=== PATIENT | male | born 1965 | race Caucasian/White ===

== ENCOUNTER 2022-10-31 21:49 | Inpatient (IN) | payer MEDICAID ==
[~2022-10-31] VITALS: Ht 185.9 cm; Wt 87.8 kg
[2022-10-31 22:22] LABS: BASOPHILS # (AUTO) 0.1 10^3/uL (0.0-0.1); BASOPHILS % (AUTO) 1 % (0-10); EOSINOPHILS # (AUTO) 0.1 10^3/uL (0.0-0.3); EOSINOPHILS % (AUTO) 0 % (0-10); HEMATOCRIT 53 % (40-54); HEMOGLOBIN 17.7 g/dL (13.3-17.7); LYMPHOCYTES # (AUTO) 2.3 10^3/uL (1.0-4.0); LYMPHOCYTES % (AUTO) 16 % (12-44); MEAN CORPUSCULAR HEMOGLOBIN 28 pg (25-34); MEAN CORPUSCULAR HGB CONC 34 g/dL (32-36); MEAN CORPUSCULAR VOLUME 83 fL (80-99); MEAN PLATELET VOLUME 10.6 fL (9.0-12.2); MONOCYTES % (AUTO) 7 % (0-12); NEUTROPHILS % (AUTO) 76 % (42-75); PLATELET COUNT 259 10^3/uL (130-400); WHITE BLOOD COUNT 14.4 10^3/uL (4.3-11.0)
[2022-10-31] MEDS ORDERED: NS IV 1000 ML 1,000 ML IV SCH (22:30)
[2022-10-31] MEDS ORDERED: ONDANSETRON 4 MG/2 ML (SDV) Z0FRAN IVP ONE (22:30)
[2022-10-31 22:32] LABS: ALBUMIN 4.7 GM/DL (3.2-4.5); CHLORIDE 95 MMOL/L (98-107); POTASSIUM 4.6 MMOL/L (3.6-5.0); SODIUM 136 MMOL/L (135-145)
[2022-10-31 22:33] LABS: CALCIUM 10.8 MG/DL (8.5-10.1)
[2022-10-31 22:34] LABS: TOTAL PROTEIN 8.2 GM/DL (6.4-8.2)
[2022-10-31 22:35] LABS: CARBON DIOXIDE 15 MMOL/L (21-32)
[2022-10-31 22:36] LABS: BILIRUBIN,TOTAL 0.5 MG/DL (0.1-1.0)
[2022-10-31 22:37] LABS: EOSINOPHILS % (MANUAL) 1 %; LYMPHOCYTES % (MANUAL) 17 %; MONOCYTES % (MANUAL) 10 %; NEUTROPHILS % (MANUAL) 72 %; SPHEROCYTES SLIGHT
[2022-10-31 22:38] LABS: ALKALINE PHOSPHATASE 109 U/L (40-136); BURR CELLS SLIGHT; CREATININE SERUM 1.89 MG/DL (0.60-1.30); GFR ESTIMATED 41; GLUCOSE 412 MG/DL (70-105)
[2022-10-31 22:39] LABS: BUN/CREATININE RATIO 12
[2022-10-31 22:41] LABS: ALANINE AMINOTRANSFERASE 16 U/L (0-55)
--- NOTE | 2022-10-31 22:48 | ED General ---
General Chief Complaint: General Problems/Pain Stated Complaint: VOMITING, DIABETIC, NO APPETITE Nursing Triage Note: PT ARRIVAL TO ER VIA PRIVATE VE[facility]ICLE [facility] [place] [facility] WITH COMPLAINT OF N/V/D X3 DAYS, HYPERGLYECMIA X3 DAYS. PATIENT STATES THAT HE THINKS HE MIGHT OF HAD HIS FLU VACCINE, BUT IS UNSURE WHEN. Source of Information: Patient Exam Limitations: No Limitations History of Present Illness Date Seen by Provider: Oct 31, 2022 Time Seen by Provider: 22:28 Initial Comments This is a 57-year-old male with history of Type 1 diabetes, HTN, CAD, GERD, quadruple bypass, COPD, and Asthma who presented the ER via POV with concerns of nausea, vomiting, diarrhea x3 days. He does have a history of type 1 diabetes and has been hyperglycemic over the past 3 days. States that he has not been taking his long-acting insulin but will still intermittently take his short acting insulin. He takes Tresiba 160 mg in the morning and he uses a sliding scale NovoLog through the day. Reports chills and body aches, unknown fevers. Has been able to keep down food and fluids. Allergies and Home Medications Allergies Coded Allergies: No Known Drug Allergies (Unverified , 10/31/22) Patient Home Medication List Home Medication List Reviewed: Yes Review of Systems Review of Systems Constitutional: see HPI Past Msifzdd-Mmcvdp-Eludtw Hx Patient Social History Tobacco Use?: Yes Tobacco type used: Cigarettes Smoking Status: Current Everyday Smoker Use of E-Cig and/or Vaping dev: No Substance use?: No Alcohol Use?: No Pt feels they are or have been: No Immunizations Up To Date Influenza Vaccine Up-to-Date: No; Not Current Physical Exam Vital Signs Vital Signs - First Documented 10/31/22 21:56 Temp 35.9 Pulse 99 Resp 18 B/P (MAP) 190/116 (140) Pulse Ox 100 O2 Delivery Room Air Capillary Refill : Less Than 3 Seconds Height, Weight, BMI Height: '" Weight: lbs. oz. kg; BMI Method: General Appearance: No Apparent Distress, WD/WN Eyes: Bilateral Eye Normal Inspection, Bilateral Eye PERRL, Bilateral Eye EOMI HEENT: TMs Normal, Normal ENT Inspection, Pharynx Normal Neck: Full Range of Motion, Normal Inspection Respiratory: Lungs Clear, Normal Breath Sounds, No Accessory Muscle Use, No Respiratory Distress Cardiovascular: Regular Rate, Rhythm, No Murmur, Normal Peripheral Pulses Gastrointestinal: Normal Bowel Sounds, Non Tender, Soft Extremity: Normal Capillary Refill, Normal Inspection Neurologic/Psychiatric: Alert, Oriented x3, No Motor/Sensory Deficits, Normal Mood/Affect Skin: Normal Color, Warm/Dry Progress/Results/Core Measures Suspected Sepsis SIRS Temperature: Pulse: 99 Respiratory Rate: 18 Laboratory Tests 10/31/22 22:05: White Blood Count 14.4H Blood Pressure 190 /116 Mean: 140 Laboratory Tests 10/31/22 22:05: Creatinine 1.89H, Platelet Count 259, Total Bilirubin 0.5 Results/Orders Lab Results Laboratory Tests Test 10/31/22 21:59 10/31/22 22:02 10/31/22 22:05 10/31/22 23:08 Range/Units Influenza Type A (RT-PCR) Not Detected Not Detecte Influenza Type B (RT-PCR) Not Detected Not Detecte SARS-CoV-2 RNA (RT-PCR) Not Detected Not Detecte Glucometer 425 *H 70-110 MG/DL White Blood Count 14.4 H 4.3-11.0 10^3/uL Red Blood Count 6.35 H 4.30-5.52 10^6/uL Hemoglobin 17.7 13.3-17.7 g/dL Hematocrit 53 40-54 % Mean Corpuscular Volume 83 80-99 fL Mean Corpuscular Hemoglobin 28 25-34 pg Mean Corpuscular Hemoglobin Concent 34 32-36 g/dL Red Cell Distribution Width 13.9 10.0-14.5 % Platelet Count 259 130-400 10^3/uL Mean Platelet Volume 10.6 9.0-12.2 fL Immature Granulocyte % (Auto) 1 % Neutrophils (%) (Auto) 76 H 42-75 % Lymphocytes (%) (Auto) 16 12-44 % Monocytes (%) (Auto) 7 0-12 % Eosinophils (%) (Auto) 0 0-10 % Basophils (%) (Auto) 1 0-10 % Neutrophils # (Auto) 11.0 H 1.8-7.8 10^3/uL Lymphocytes # (Auto) 2.3 1.0-4.0 10^3/uL Monocytes # (Auto) 1.0 0.0-1.0 10^3/uL Eosinophils # (Auto) 0.1 0.0-0.3 10^3/uL Basophils # (Auto) 0.1 0.0-0.1 10^3/uL Immature Granulocyte # (Auto) 0.1 0.0-0.1 10^3/uL Neutrophils % (Manual) 72 % Lymphocytes % (Manual) 17 % Monocytes % (Manual) 10 % Eosinophils % (Manual) 1 % Spherocytes SLIGHT Evangelista Cells SLIGHT Sodium Level 136 135-145 MMOL/L Potassium Level 4.6 3.6-5.0 MMOL/L Chloride Level 95 L 98-107 MMOL/L Carbon Dioxide Level 15 L 21-32 MMOL/L Anion Gap 26 H 5-14 MMOL/L Blood Urea Nitrogen 22 H 7-18 MG/DL Creatinine 1.89 H 0.60-1.30 MG/DL Estimat Glomerular Filtration Rate 41 BUN/Creatinine Ratio 12 Glucose Level 412 *H 70-105 MG/DL Calcium Level 10.8 H 8.5-10.1 MG/DL Corrected Calcium 8.5-10.1 MG/DL Total Bilirubin 0.5 0.1-1.0 MG/DL Aspartate Amino Transf (AST/SGOT) 13 5-34 U/L Alanine Aminotransferase (ALT/SGPT) 16 0-55 U/L Alkaline Phosphatase 109 40-136 U/L Total Protein 8.2 6.4-8.2 GM/DL Albumin 4.7 H 3.2-4.5 GM/DL Beta-Hydroxybutyrate (Chem panel) 9.50 H 0.00-0.27 MMOL/L Venous Blood pH 7.25 L 7.31-7.41 Venous Blood Partial Pressure CO2 42 40-52 MMHG Venous Blood HCO3 18 L 22-28 MMOL/L My Orders Orders - BRIANA CLARK BARREL REAMER Cbc With Automated Diff (10/31/22 22:18) Comprehensive Metabolic Panel (10/31/22 22:18) Ua Culture If Indicated (10/31/22 22:18) Ed Iv/Invasive Line Start (10/31/22 22:19) Ns Iv 1000 Ml (Sodium Chloride 0.9%) (10/31/22 22:30) Ondansetron Injection (Zofran Injectio (10/31/22 22:30) Manual Differential (10/31/22 22:05) Beta Hydroxybutyrate (10/31/22 22:41) Covid 19 Inhouse Test (10/31/22 22:48) Influenza A And B By Pcr (10/31/22 22:48) Venous Blood Gas (10/31/22 23:10) Insulin (Regular) Human (Novolin R (Per (10/31/22 23:30) Insulin Regular Drip (Myxredlin 100 Unit (10/31/22 23:30) Promethazine Injection (Phenergan Injec (10/31/22 23:30) Metoprolol Tartrate Injection (Lopressor (10/31/22 23:30) Medications Given in ED Current Medications Medications Dose Ordered Sig/Allison Route Start Time Stop Time Status Last Admin Dose Admin Insulin Human Regular 10 unit ONCE ONCE IV 10/31/22 23:30 10/31/22 23:31 DC 10/31/22 23:38 10 UNIT Metoprolol Tartrate 5 mg ONCE ONCE IV 10/31/22 23:30 10/31/22 23:31 DC 10/31/22 23:38 5 MG Ondansetron HCl 4 mg ONCE ONCE IVP 10/31/22 22:30 10/31/22 22:31 DC 10/31/22 22:30 4 MG Promethazine HCl 25 mg ONCE ONCE IVP 10/31/22 23:30 10/31/22 23:31 DC 10/31/22 23:38 25 MG Vital Signs/I&O 10/31/22 21:56 Temp 35.9 Pulse 99 Resp 18 B/P (MAP) 190/116 (140) Pulse Ox 100 O2 Delivery Room Air Capillary Refill : Less Than 3 Seconds 2 Blood Pressure Mean: 140 Point of Care Testing Finger Stick Blood Glucose: 425 Progress Note : Progress Note Patient examined in no acute distress. He does have a blood glucose of 425. Given normal saline 1 L bolus and Zofran 4 mg IV push. Obtain basic labs, UA, beta hydroxybutyrate. Will obtain Flu and Covid swabs. Departure Communication (Admissions) Time/Spoke to Admitting Phy: 23:16 Dr. Brantley Time/Spoke to Consulting Phy: 23:[address] Muniz Impression Primary Impression: DKA (diabetic ketoacidosis) Additional Impression: Nausea & vomiting Disposition: ADMITTED INPATIENT Condition: Stable Admissions Decision to Admit Reason: Admit from ER (General) Decision to Admit/Date: Oct 31, 2022 Time/Decision to Admit Time: 23:03 Departure-Patient Inst. Referrals: NO,LOCAL PHYSICIAN (PCP) Primary Care Physician BRIANA CLARK APRN Oct 31, 2022 22:48
[2022-10-31] MEDS ORDERED: meTOprolol 5 MG/5 ML (LOPRESSOR) VIAL IV ONE (23:30)
[2022-10-31] MEDS ORDERED: inSUlin (REGULAR) HUMAN 1 UNIT/0.01 ML (CHARGE PER UNIT) IV ONE (23:30)
[2022-10-31] MEDS ORDERED: PROMETHAZINE INJ 25 MG/ML (PHENERGAN) AMP IVP ONE (23:30)
[2022-11-01] MEDS ORDERED: NS IV 1000 ML 1,000 ML IV SCH (00:30)
[2022-11-01] MEDS ORDERED: NS (IVPB) 250 ML IV ONE (00:45)
[2022-11-01] MEDS ORDERED: METOCLOPRAMIDE INJ 10 MG/2 ML (REGLAN) IV PRN (00:45)
[2022-11-01] MEDS ORDERED: ACETAMINOPHEN 650 MG SUPP (TYLENOL) PR PRN (00:45)
[2022-11-01] MEDS ORDERED: ACETAMINOPHEN 325 MG TABLET PO PRN (00:45)
[2022-11-01] MEDS ORDERED: PROMETHAZINE INJ 25 MG/ML (PHENERGAN) AMP IVP PRN (00:45)
[2022-11-01] MEDS ORDERED: ONDANSETRON 4 MG/2 ML (SDV) Z0FRAN IV PRN (00:45)
[2022-11-01] MEDS ORDERED: RT-ALBUTEROL HFA 8.5 GM INHALER IH PRN (00:45)
[2022-11-01] MEDS ORDERED: hydrALAZINE (APESOLINE) 20 MG/ML VIAL IV PRN ×2 (01:00)
[2022-11-01] MEDS ORDERED: LABETALOL HCL 20 MG/4 ML VIAL IV PRN ×2 (01:00)
[2022-11-01 01:02] VITALS: BP 196/110
[2022-11-01 01:09] LABS: BASOPHILS # (AUTO) 0.1 10^3/uL (0.0-0.1); BASOPHILS % (AUTO) 1 % (0-10); EOSINOPHILS # (AUTO) 0.3 10^3/uL (0.0-0.3); EOSINOPHILS % (AUTO) 2 % (0-10); HEMATOCRIT 52 % (40-54); HEMOGLOBIN 17.3 g/dL (13.3-17.7); LYMPHOCYTES % (AUTO) 13 % (12-44); MEAN CORPUSCULAR HEMOGLOBIN 28 pg (25-34); MEAN CORPUSCULAR HGB CONC 33 g/dL (32-36); MEAN CORPUSCULAR VOLUME 83 fL (80-99); MEAN PLATELET VOLUME 10.3 fL (9.0-12.2); MONOCYTES % (AUTO) 6 % (0-12); NEUTROPHILS # (AUTO) 12.4 10^3/uL (1.8-7.8); NEUTROPHILS % (AUTO) 78 % (42-75); PLATELET COUNT 222 10^3/uL (130-400); WHITE BLOOD COUNT 15.8 10^3/uL (4.3-11.0)
--- NOTE | 2022-11-01 01:12 | Tele-ICU Progress Note ---
Progress Note 57M with DM1, CAD s/p 4vCABG and 8-9 stents, bladder CA, prostate CA, recent prolonged admission x3 months due to complications of trigeminal neuralgia surgery, has had nausea, vomitting, diarrhea x3 days. Has not been taking his long acting insulin. Did take Novolog 20-25 units earlier in the day. In ED, found to be in DKA with anion gap 26, b-hydroxy 9.5. - DKA: Initial gap 26, repeat pending. Insulin gtt ongoing, DKA protocol in place. Unclear whether stopped insulin prior to onset of symptoms. Possible viral GE trigger. If GE symptoms persist beyond treatment for DKA, will initiate further work up. - HTN: BP has been around 200/100. PRN labetalol and hydralazine ordered. Restart home Rx when able to tolerate PO. - tobacco: patch, PRN gum - QUOC vs CKD: creatinine 1.8, baseline unknown. With DM1, high risk for both. Will see if there is improvement with volume resuscitation. Send UA for e/o proteinuria. Diagnosis: A total of 11 minutes of critical care time was devoted to this patient, including reviewing this patient's available data, including medical history, events of note and test results. I have overseen the activities of other members of the care team under my direct supervision during events of the note . This was required to treat and/or prevent further deterioration of critical care conditions ( as above ). Service provided to a patient admitted to ICU bed via interactive E-CARE system with real-time audio and video telecommunications from [facility]- ICU hub located in [place], [place] Focused Exam Height, Weight, BMI Height: '" Weight: lbs. oz. kg; 25.23 BMI Method: WRAD GROSS MD Nov 01, 2022 01:12
[2022-11-01] MEDS ORDERED: NICOTINE 2 MG LOZENGE (COMMIT) MM PRN (01:15)
[2022-11-01 01:20] LABS: POTASSIUM 3.9 MMOL/L (3.6-5.0)
[2022-11-01 01:21] LABS: CALCIUM 9.8 MG/DL (8.5-10.1)
[2022-11-01 01:25] LABS: CREATININE SERUM 1.5 MG/DL (0.60-1.30)
[2022-11-01] MEDS: 1/2 NS IV SOLUTION 1,000 ML IV SCH ×6 (02:07→19:08)
[2022-11-01] MEDS: POTASSIUM CL 10MEQ/50ML IVPB 50 ML IV SCH ×8 (02:09→18:48)
[2022-11-01 03:26] LABS: BASOPHILS # (AUTO) 0.1 10^3/uL (0.0-0.1); BASOPHILS % (AUTO) 0 % (0-10); EOSINOPHILS # (AUTO) 0.2 10^3/uL (0.0-0.3); EOSINOPHILS % (AUTO) 1 % (0-10); HEMATOCRIT 48 % (40-54); HEMOGLOBIN 15.9 g/dL (13.3-17.7); LYMPHOCYTES % (AUTO) 14 % (12-44); MEAN CORPUSCULAR HEMOGLOBIN 28 pg (25-34); MEAN CORPUSCULAR HGB CONC 33 g/dL (32-36); MEAN CORPUSCULAR VOLUME 83 fL (80-99); MEAN PLATELET VOLUME 10.4 fL (9.0-12.2); MONOCYTES # (AUTO) 0.7 10^3/uL (0.0-1.0); MONOCYTES % (AUTO) 5 % (0-12); NEUTROPHILS # (AUTO) 10.8 10^3/uL (1.8-7.8); NEUTROPHILS % (AUTO) 79 % (42-75); PLATELET COUNT 207 10^3/uL (130-400); WHITE BLOOD COUNT 13.7 10^3/uL (4.3-11.0)
[2022-11-01 03:52] LABS: CLARITY,URINE CLEAR; COLOR,URINE YELLOW; GLUCOSE, URINE (UA) 2+ (NEGATIVE); KETONES,URINE 3+ (NEGATIVE); LEUKOCYTE ESTERASE ,URINE NEGATIVE (NEGATIVE); NITRITE,URINE NEGATIVE (NEGATIVE); PH,URINE 5.5 (5-9); PROTEIN,URINE NEGATIVE (NEGATIVE)
[2022-11-01 04:44] LABS: CREATININE SERUM 1.4 MG/DL (0.60-1.30); POTASSIUM 4.2 MMOL/L (3.6-5.0)
[2022-11-01 04:45] LABS: BILIRUBIN,TOTAL 0.3 MG/DL (0.1-1.0); CALCIUM 9.1 MG/DL (8.5-10.1); MAGNESIUM 1.9 MG/DL (1.6-2.4); PHOSPHORUS 2.8 MG/DL (2.3-4.7)
[2022-11-01] MEDS: D5 1/2 NS 1000 ML IV SOLUTION 1,000 ML IV SCH ×4 (04:54→16:29)
[2022-11-01 04:57] LABS: BACTERIA,URINE TRACE /HPF; BILIRUBIN,URINE NEGATIVE (NEGATIVE); HYALINE CASTS, URINE 0-2 /LPF; SQUAMOUS EPITHELIAL CELL,UR 0-2 /HPF
[2022-11-01 05:42] LABS: POTASSIUM 4.3 MMOL/L (3.6-5.0)
[2022-11-01 05:43] LABS: CALCIUM 9.2 MG/DL (8.5-10.1)
[2022-11-01 05:44] LABS: TOTAL PROTEIN 6.9 GM/DL (6.4-8.2)
[2022-11-01 05:46] LABS: BILIRUBIN,TOTAL 0.3 MG/DL (0.1-1.0)
[2022-11-01 05:47] LABS: PHOSPHORUS 2.4 MG/DL (2.3-4.7)
[2022-11-01 05:48] LABS: CREATININE SERUM 1.29 MG/DL (0.60-1.30)
[2022-11-01 05:51] LABS: MAGNESIUM 1.6 MG/DL (1.6-2.4)
[2022-11-01] MEDS ORDERED: NS IV 500 ML 500 ML IV PRN (06:30)
[2022-11-01] MEDS: MAGNESIUM 1 GM/100 ML IVPB 100 ML IV SCH ×2 (06:37→06:38)
[2022-11-01] MEDS ORDERED: UMECLIDINIUM BROMIDE (INCRUSE ELLIPTA) 7'S IH SCH (08:00)
[2022-11-01] MEDS: NICOTINE 14 MG (NICODERM) PATCH TD SCH (08:12)
[2022-11-01] MEDS: PANTOPRAZOLE 40 MG (PROTONIX) VIAL IV SCH (08:12)
[2022-11-01] MEDS: ENOXAPARIN 40 MG/0.4 ML (LOVENOX) SYR SC SCH (08:12)
[2022-11-01 09:42] LABS: CALCIUM 8.7 MG/DL (8.5-10.1); CREATININE SERUM 1.18 MG/DL (0.60-1.30); POTASSIUM 3.8 MMOL/L (3.6-5.0)
--- NOTE | 2022-11-01 10:57 | History & Physical ---
BERNARDO RECINOS 11/01/22 1057: History of Present Illness History of Present Illness Reason for visit/HPI Yovany Romero is a 57-year-old male with history of Type 1 diabetes, HTN, CAD, GERD, quadruple bypass, COPD, and Asthma who presented the ER via POV with concerns of nausea, vomiting, diarrhea x3 days. He does have a history of type 1 diabetes and has been hyperglycemic over the past 3 days. States that he has not been taking his long-acting insulin but will still intermittently take his short acting insulin. He takes Tresiba 160 mg in the morning and he uses a sliding scale NovoLog through the day. Reports chills and body aches, unknown fevers. Has been able to keep down food and fluids. 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 He denied vomiting/diarrhea last night and mentioned that he "couldn't remember if he had" questioning any constant lucidity of thinking. Still nauseas and doesnt appear well enough to be transfered or released at this time. Date of Admission Oct 31, 2022 at 23:37 Time Seen by a Provider: 08:10 I consulted on this patient on 11/01/22 10:52 Attending Physician No,Local Physician Admitting Physician Admitting Physician: Sandra Salazar DO Attending Physician: Sandra Salazar DO Consult Allergies and Home Medications Allergies Coded Allergies: No Known Drug Allergies (Unverified , 10/31/22) Patient Home Medication List Home Medication List Reviewed: Yes Albuterol Sulfate (Ventolin Hfa) 90 Mcg Hfa.aer.ad, 2 PUFF INH Q6H PRN for SHORTNESS OF BREATH, (Reported) Entered as Reported by: PHANI GALLAGHER on 11/01/221453 Last Action: Continued Amitriptyline HCl (Amitriptyline HCl) 50 Mg Tablet, 50 MG PO HS, (Reported) Entered as Reported by: PHANI GALLAGHER on 11/01/221453 Last Action: Converted Aspirin (Aspirin EC) 81 Mg Tablet.dr, 81 MG PO MO,WE,FR, (Reported) Entered as Reported by: PHANI GALLAGHER on 11/01/221453 Last Action: Continued Carvedilol (Carvedilol) 25 Mg Tablet, 12.5 MG PO BID, (Reported) Entered as Reported by: PHANI GALLAGHER on 11/01/221453 Last Action: Converted Clopidogrel Bisulfate (Clopidogrel) 75 Mg Tablet, 75 MG PO DAILY, (Reported) Entered as Reported by: PHANI GALLAGHER on 11/01/221453 Last Action: Continued Dicyclomine HCl (Dicyclomine HCl) 20 Mg Tablet, 20 MG PO DAILY, (Reported) Entered as Reported by: PHANI GALLAGHER on 11/01/221453 Last Action: Converted Diltiazem HCl (Dilt-Xr) 240 Mg Cap.er.deg, 240 MG PO DAILY, (Reported) Entered as Reported by: PHANI GALLAGHER on 11/01/221453 Last Action: Converted Duloxetine HCl (Duloxetine HCl) 30 Mg Capsule.dr, 30 MG PO BID, (Reported) Entered as Reported by: PHANI GALLAGHER on 11/01/221453 Last Action: Continued Evolocumab (Repatha Syringe) 140 Mg/Ml Syringe, 1 EA IJ EVERY 2 WEEKS, (Report ed) Entered as Reported by: PHANI GALLAGHER on 11/01/221453 Last Action: Converted Fenofibrate Nanocrystallized (Fenofibrate) 145 Mg Tablet, 145 MG PO DAILY, (Reported) Entered as Reported by: PHANI GALLAGHER on 11/01/221453 Last Action: Converted Insulin Aspart (Novolog Flexpen) 100 Unit/Ml (3 Ml) Solution, UNITS SC AC, (Reported) Entered as Reported by: PHANI GALLAGHER on 11/01/221453 Last Action: Held Insulin Degludec (Tresiba Flextouch U-200) 200 Unit/Ml (3 Ml) Insuln.pen, 160 UNITS SC DAILY, (Reported) Entered as Reported by: PHANI GALLAGHER on 11/01/221453 Last Action: Held Isosorbide Mononitrate (Isosorbide Mononitrate ER) 30 Mg Tab.er.24h, 30 MG PO DAILY, (Reported) Entered as Reported by: PHANI GALLAGHER on 11/01/221453 Last Action: Continued Mometasone/Formoterol (Dulera 200 Mcg/5 Mcg Inhaler) 200 Mcg-5 Mcg/Actuation Hfa.aer.ad, 2 PUFF INH BID, (Reported) Entered as Reported by: PHANI GALLAGHER on 11/01/221453 Last Action: Converted [place]-3/Dha/Epa/Fish Oil (Fish Oil 1,000 mg Softgel) 250 Mg-500 Mg-1,000 Mg Capsule, 2 EACH PO BID, (Reported) Entered as Reported by: PHANI GALLAGHER on 11/01/221453 Last Action: Converted Oxcarbazepine (Oxcarbazepine) 600 Mg Tablet, 900 MG PO BID, (Reported) Entered as Reported by: PHANI GALLAGHER on 11/01/221453 Last Action: Converted Oxycodone HCl (Oxycodone HCl) 10 Mg Tablet, 10 MG PO Q4H PRN for PAIN-SEVERE (8-10), (Reported) Entered as Reported by: PHANI GALLAGHER on 11/01/221453 Last Action: Converted Pregabalin (Pregabalin) 200 Mg Capsule, 200 MG PO BID, (Reported) Entered as Reported by: PHANI GALLAGHER on 11/01/221453 Last Action: Converted Tiotropium [place] (Spiriva) 18 Mcg Aerp, 1 PUFF INH DAILY, (Reported) Entered as Reported by: PHANI GALLAGHER on 11/01/221453 Last Action: Continued Past Otjyscy-Dimipj-Pfdamf Hx Patient Social History Tobacco Use?: Yes Tobacco type used: Cigarettes Smoking Status: Current Everyday Smoker Smokeless Tobacco Frequency: Never a User Use of E-Cig and/or Vaping dev: No Substance use?: No Alcohol Use?: No Pt feels they are or have been: No Immunizations Up To Date Tetanus Booster (TDap): Less Than 5 Years Current Status Advance Directives: No Communicates: Verbally Primary Language: Bulgarian Preferred Spoken Language: Bulgarian Is interpretation needed?: No Implanted or Applied Medical D: None Review of Systems Constitutional: chills, diaphoresis, weakness EENTM: no symptoms reported Respiratory: dyspnea on exertion Cardiovascular: no symptoms reported Gastrointestinal: diarrhea, nausea, vomiting Genitourinary: no symptoms reported Musculoskeletal: no symptoms reported Skin: no symptoms reported Psychiatric/Neurological: No Symptoms Reported Physical Exam Vital Signs Vital Signs - First Documented 10/31/22 11/01/22 21:56 01:02 Temp 35.9 Pulse 99 Resp 18 B/P (MAP) 190/116 (140) Pulse Ox 100 O2 Delivery Room Air FiO2 21 Capillary Refill : Less Than 3 Seconds Height, Weight, BMI Height: '" Weight: lbs. oz. kg; 25.23 BMI Method: General Appearance: No Apparent Distress, WD/WN Neck: Full Range of Motion, Normal Inspection, Non Tender, Supple Respiratory: Chest Non Tender, No Accessory Muscle Use, No Respiratory Distress Cardiovascular: Regular Rate, Rhythm, No Edema, No Gallop, No JVD, No Murmur, Normal Peripheral Pulses Gastrointestinal: Normal Bowel Sounds, No Organomegaly, No Pulsatile Mass, Non Tender, Soft Back: Normal Inspection Extremity: Normal Capillary Refill, Normal Inspection, Normal Range of Motion Neurologic/Psychiatric: Alert, Oriented x3, No Motor/Sensory Deficits, Normal Mood/Affect Skin: Normal Color Lymphatic: No Adenopathy Assessment/Plan Assessment and Plan A: DKA DMT1 w/hyperglycemia viral gastroenteritis hypocapnea tachypneia h/o tobacco abuse P: Insulin regulation IV insulin drip Asess GE severity after regulating DKA Monitor O2, place O2 assistive device if needed educate on smoking cessation educate on insulin compliance Admission Diagnosis DKA SANDRA SALAZAR 11/02/22 0458: Allergies and Home Medications Allergies Coded Allergies: No Known Drug Allergies (Unverified , 10/31/22) Patient Home Medication List Albuterol Sulfate (Ventolin Hfa) 90 Mcg Hfa.aer.ad, 2 PUFF INH Q6H PRN for SHORTNESS OF BREATH, (Reported) Entered as Reported by: PHANI GALLAGHER on 11/01/221453 Last Action: Continued Amitriptyline HCl (Amitriptyline HCl) 50 Mg Tablet, 50 MG PO HS, (Reported) Entered as Reported by: PHANI GALLAGHER on 11/01/221453 Last Action: Converted Aspirin (Aspirin EC) 81 Mg Tablet.dr, 81 MG PO MO,WE,FR, (Reported) Entered as Reported by: PHANI GALLAGHER on 11/01/221453 Last Action: Continued Carvedilol (Carvedilol) 25 Mg Tablet, 12.5 MG PO BID, (Reported) Entered as Reported by: PHANI GALLAGHER on 11/01/221453 Last Action: Converted Clopidogrel Bisulfate (Clopidogrel) 75 Mg Tablet, 75 MG PO DAILY, (Reported) Entered as Reported by: PHANI GALLAGHER on 11/01/221453 Last Action: Continued Dicyclomine HCl (Dicyclomine HCl) 20 Mg Tablet, 20 MG PO DAILY, (Reported) Entered as Reported by: PHANI GALLAGHER on 11/01/221453 Last Action: Converted Diltiazem HCl (Dilt-Xr) 240 Mg Cap.er.deg, 240 MG PO DAILY, (Reported) Entered as Reported by: PHANI GALLAGHER on 11/01/221453 Last Action: Converted Duloxetine HCl (Duloxetine HCl) 30 Mg Capsule.dr, 30 MG PO BID, (Reported) Entered as Reported by: PHANI GALLAGHER on 11/01/221453 Last Action: Continued Evolocumab (Repatha Syringe) 140 Mg/Ml Syringe, 1 EA IJ EVERY 2 WEEKS, (Reported) Entered as Reported by: PHANI GALLAGHER on 11/01/221453 Last Action: Converted Fenofibrate Nanocrystallized (Fenofibrate) 145 Mg Tablet, 145 MG PO DAILY, (Reported) Entered as Reported by: PHANI GALLAGHER on 11/01/221453 Last Action: Converted Insulin Aspart (Novolog Flexpen) 100 Unit/Ml (3 Ml) Solution, UNITS SC AC, (Reported) Entered as Reported by: PHANI GALLAGHER on 11/01/221453 Last Action: Held Insulin Degludec (Tresiba Flextouch U-200) 200 Unit/Ml (3 Ml) Insuln.pen, 160 UNITS SC DAILY, (Reported) Entered as Reported by: PHANI GALLAGHER on 11/01/221453 Last Action: Held Isosorbide Mononitrate (Isosorbide Mononitrate ER) 30 Mg Tab.er.24h, 30 MG PO DAILY, (Reported) Entered as Reported by: PHANI GALLAGHER on 11/01/221453 Last Action: Continued Mometasone/Formoterol (Dulera 200 Mcg/5 Mcg Inhaler) 200 Mcg-5 Mcg/Actuation H fa.aer.ad, 2 PUFF INH BID, (Reported) Entered as Reported by: PHANI GALLAGHER on 11/01/221453 Last Action: Converted [place]-3/Dha/Epa/Fish Oil (Fish Oil 1,000 mg Softgel) 250 Mg-500 Mg-1,000 Mg Capsule, 2 EACH PO BID, (Reported) Entered as Reported by: PHANI GALLAGHER on 11/01/221453 Last Action: Converted Oxcarbazepine (Oxcarbazepine) 600 Mg Tablet, 900 MG PO BID, (Reported) Entered as Reported by: PHANI GALLAGHER on 11/01/221453 Last Action: Converted Oxycodone HCl (Oxycodone HCl) 10 Mg Tablet, 10 MG PO Q4H PRN for PAIN-SEVERE (8- 10), (Reported) Entered as Reported by: PHANI GALLAGHER on 11/01/221453 Last Action: Converted Pregabalin (Pregabalin) 200 Mg Capsule, 200 MG PO BID, (Reported) Entered as Reported by: PHANI GALLAGHER on 11/01/221453 Last Action: Converted Tiotropium [place] (Spiriva) 18 Mcg Aerp, 1 PUFF INH DAILY, (Reported) Entered as Reported by: PHANI GALLAGHER on 11/01/221453 Last Action: Continued Review of Systems Constitutional: see HPI Physical Exam General Appearance: No Apparent Distress, WD/WN Assessment/Plan Assessment and Plan DKA management Problems: (1) DKA (diabetic ketoacidosis) Status: Acute Admission Diagnosis Admission Status: Inpatient Order (span 2 midnights) Reason for Inpatient Admission: dka Supervisory-Addendum Brief Verification & Attestation Participated in pt care: history, MDM, physical Personally performed: exam, history, MDM, supervision of care Care discussed with: Medical Student Procedures: n/a Results interpretation: Verified all documentation Verification and Attestation of Medical Student E/M Service A medical student performed and documented this service in my presence. I reviewed and verified all information documented by the medical student and made modifications to such information, when appropriate. I personally performed the physical exam and medical decision making. Sandra Salazar Nov 02, 2022,04:58 BERNARDO RECINOS Nov 01, 2022 10:57 SANDRA SALAZAR DO Nov 02, 2022 04:58
[2022-11-01] MEDS ORDERED: AMIT50TA3 PO (14:54)
[2022-11-01] MEDS ORDERED: OXCA600T10 PO (14:54)
[2022-11-01] MEDS ORDERED: ASPI-1238 PO (14:54)
[2022-11-01] MEDS ORDERED: INSU200I4 SC (14:54)
[2022-11-01] MEDS ORDERED: TIOT18CA2 INH (14:54)
[2022-11-01] MEDS ORDERED: INSU100I14 SC (14:54)
[2022-11-01] MEDS ORDERED: PREG200C28 PO (14:54)
[2022-11-01] MEDS ORDERED: CLOP75TA28 PO (14:54)
[2022-11-01] MEDS ORDERED: OMEG-35 PO (14:54)
[2022-11-01] MEDS ORDERED: CARV25TA PO (14:54)
[2022-11-01] MEDS ORDERED: DICY20TA PO (14:54)
[2022-11-01] MEDS ORDERED: DULO30CA49 PO (14:54)
[2022-11-01] MEDS ORDERED: FENO145T26 PO (14:54)
[2022-11-01] MEDS ORDERED: ALBU18HF2 INH (14:54)
[2022-11-01] MEDS ORDERED: DILT240C47 PO (14:54)
[2022-11-01] MEDS ORDERED: EVOL140S2 IJ (14:54)
[2022-11-01] MEDS ORDERED: ISOS30TA82 PO (14:54)
[2022-11-01] MEDS ORDERED: OXYC10TA7 PO (14:54)
[2022-11-01] MEDS ORDERED: MOME13HF11 INH (14:54)
[2022-11-01] MEDS ORDERED: RT-ALBUTEROL SULF 2.5 MG/3 ML PRE-MIX VIAL INH PRN (15:15)
[2022-11-01] MEDS ORDERED: NON-FORMULARY MEDICATION 1 EA EA (Oxycodone HCl 10 MG) PO PRN (15:15)
[2022-11-01] MEDS ORDERED: ASPIRIN E.C. 81 MG (ECOTRIN) TAB PO SCH (15:15)
[2022-11-01] MEDS ORDERED: EVOLOCUMAB IJ SCH (15:15)
[2022-11-01] MEDS: OMEGA 3 (FISH OIL) 1000 MG CAP PO SCH (17:44)
[2022-11-01 17:51] LABS: CALCIUM 8.7 MG/DL (8.5-10.1)
[2022-11-01 17:55] LABS: CREATININE SERUM 1.01 MG/DL (0.60-1.30)
[2022-11-01] MEDS: OXcarbazepine (TRILEPTAL) 300 MG TAB PO SCH (20:34)
[2022-11-01] MEDS: TAMSULOSIN 0.4 MG (FLOMAX) CAP PO SCH (20:34)
[2022-11-01] MEDS: PREGABALIN 100 MG (LYRICA) CAPSULE PO SCH (20:34)
[2022-11-01] MEDS: DULoxetine 30 MG (CYMBALTA) CAP PO SCH (20:35)
[2022-11-01] MEDS ORDERED: AMITRIPTYLINE 25 MG (ELAVIL) TAB PO SCH (21:00)
[2022-11-01] MEDS ORDERED: OXCARBAZEPINE 900 MG PO SCH (21:00)
[2022-11-01] MEDS ORDERED: NON-FORMULARY MEDICATION 1 EA EA (Carvedilol 12.5 MG) PO SCH (21:00)
[2022-11-01] MEDS ORDERED: NON-FORMULARY MEDICATION 1 EA EA (Amitriptyline HCl 50 MG) PO SCH (21:00)
[2022-11-01] MEDS ORDERED: NON-FORMULARY MEDICATION 1 EA EA (Mometasone/Formoterol (Dulera 200 Mcg/5 Mcg Inhaler) 2 P INH SCH (21:00)
[2022-11-01] MEDS ORDERED: PREGABALIN 200 MG PO SCH (21:00)
[2022-11-01] MEDS ORDERED: NON-FORMULARY MEDICATION 1 EA EA (Omega-3/Dha/Epa/Fish Oil (Fish Oil 1,000 mg Softgel) 2 E PO SCH (21:00)
[2022-11-01] MEDS: RT--FLUTICASONE/SALMETEROL 232-14 (AIRDUO RespiCLICK) IH SCH (21:50)
[2022-11-01] MEDS: inSUlin ASPART (NovoLOG) 1 UNIT/0.01 ML (CHARGE PER UNIT) SC SCH (22:27)
[2022-11-02] MEDS: 1/2 NS IV SOLUTION 1,000 ML IV SCH ×3 (00:43→08:30)
[2022-11-02 05:41] LABS: BASOPHILS # (AUTO) 0.1 10^3/uL (0.0-0.1); BASOPHILS % (AUTO) 1 % (0-10); EOSINOPHILS # (AUTO) 0.1 10^3/uL (0.0-0.3); EOSINOPHILS % (AUTO) 2 % (0-10); HEMATOCRIT 44 % (40-54); HEMOGLOBIN 14.8 g/dL (13.3-17.7); LYMPHOCYTES # (AUTO) 2.8 10^3/uL (1.0-4.0); LYMPHOCYTES % (AUTO) 31 % (12-44); MEAN CORPUSCULAR HEMOGLOBIN 28 pg (25-34); MEAN CORPUSCULAR HGB CONC 33 g/dL (32-36); MEAN CORPUSCULAR VOLUME 83 fL (80-99); MEAN PLATELET VOLUME 10.2 fL (9.0-12.2); MONOCYTES # (AUTO) 0.8 10^3/uL (0.0-1.0); MONOCYTES % (AUTO) 9 % (0-12); NEUTROPHILS # (AUTO) 5.1 10^3/uL (1.8-7.8); NEUTROPHILS % (AUTO) 57 % (42-75); PLATELET COUNT 161 10^3/uL (130-400)
[2022-11-02] MEDS ORDERED: POTASSIUM CL 10MEQ/50ML IVPB 50 ML IV SCH (06:00)
[2022-11-02] MEDS ORDERED: MAGNESIUM 1 GM/100 ML IVPB 100 ML IV SCH (06:00)
[2022-11-02] MEDS ORDERED: KCL 20 MEQ TAB (K-DUR) PO SCH (06:00)
[2022-11-02 06:15] LABS: ALBUMIN 3.3 GM/DL (3.2-4.5); BILIRUBIN,TOTAL 0.4 MG/DL (0.1-1.0); CALCIUM 8.7 MG/DL (8.5-10.1); CREATININE SERUM 0.88 MG/DL (0.60-1.30); MAGNESIUM 1.6 MG/DL (1.6-2.4); PHOSPHORUS 2.1 MG/DL (2.3-4.7); POTASSIUM 3.9 MMOL/L (3.6-5.0); TOTAL PROTEIN 5.6 GM/DL (6.4-8.2)
[2022-11-02] MEDS: MAGNESIUM 1 GM/100 ML IVPB 100 ML IV SCH ×2 (06:32→06:33)
[2022-11-02] MEDS: inSUlin ASPART (NovoLOG) 1 UNIT/0.01 ML (CHARGE PER UNIT) SC SCH (06:32)
[2022-11-02] MEDS: RT--FLUTICASONE/SALMETEROL 232-14 (AIRDUO RespiCLICK) IH SCH (07:33)
[2022-11-02] MEDS: OMEGA 3 (FISH OIL) 1000 MG CAP PO SCH (08:30)
[2022-11-02] MEDS: PANTOPRAZOLE 40 MG (PROTONIX) VIAL IV SCH (08:41)
[2022-11-02] MEDS: DULoxetine 30 MG (CYMBALTA) CAP PO SCH (08:42)
[2022-11-02] MEDS: OXcarbazepine (TRILEPTAL) 300 MG TAB PO SCH (08:43)
[2022-11-02] MEDS: TAMSULOSIN 0.4 MG (FLOMAX) CAP PO SCH (08:43)
[2022-11-02] MEDS: PREGABALIN 100 MG (LYRICA) CAPSULE PO SCH (08:43)
[2022-11-02] MEDS ORDERED: NON-FORMULARY MEDICATION 1 EA EA (Fenofibrate Nanocrystallized (Fenofibrate) 145 MG) PO SCH (09:00)
[2022-11-02] MEDS ORDERED: NON-FORMULARY MEDICATION 1 EA EA (Diltiazem HCl (Dilt-Xr) 240 MG) PO SCH (09:00)
[2022-11-02] MEDS ORDERED: ISOSORBIDE MONONITRATE 30 MG (IMDUR) TAB PO SCH (09:00)
[2022-11-02] MEDS ORDERED: CLOPIDOGREL 75 MG (PLAVIX) TABLET PO SCH (09:00)
[2022-11-02] MEDS ORDERED: FENOFIBRATE 134 MG (LOFIBRA) CAPSULE PO SCH (09:00)
[2022-11-02] MEDS: NICOTINE 14 MG (NICODERM) PATCH TD SCH (09:00)
[2022-11-02] MEDS ORDERED: ASPIRIN E.C. 81 MG (ECOTRIN) TAB PO SCH (09:00)
[2022-11-02] MEDS ORDERED: DICYCLOMINE 10 MG (BENTYL) CAP PO SCH (09:00)
[2022-11-02] MEDS ORDERED: TIOTROPIUM BROMIDE (SPIRIVA) 5'S INHALER IH SCH (09:00)
[2022-11-02] MEDS: ENOXAPARIN 40 MG/0.4 ML (LOVENOX) SYR SC SCH (09:00)
[2022-11-02] MEDS ORDERED: NON-FORMULARY MEDICATION 1 EA EA (Dicyclomine HCl 20 MG) PO SCH (09:00)
[2022-11-02] MEDS ORDERED: TMSL.4C PO (09:48)
--- NOTE | 2022-11-02 09:49 | Discharge Summary ---
Diagnosis/Chief Complaint Date of Admission Oct 31, 2022 at 23:37 Date of Discharge Discharge Date: Nov 02, 2022 Discharge Diagnosis A: DKA DMT1 w/hyperglycemia viral gastroenteritis hypocapnea tachypnea h/o tobacco abuse Discharge Summary Discharge Physical Examination Allergies: Coded Allergies: No Known Drug Allergies (Unverified , 10/31/22) Vitals & I&Os Vital Signs Date Time Temp Pulse Resp B/P (MAP) Pulse Ox O2 Delivery O2 Flow Rate FiO2 11/02/22 10:50 96/63 11/02/22 10:45 77 16 93 Nasal Cannula 2.00 11/02/22 08:00 36.0 11/01/22 01:02 21 General Appearance: Alert, Oriented X3, Cooperative Respiratory: Clear to Auscultation Cardiovascular: Regular Rate Psych/Mental Status: Mental Status NL Hospital Course Was the Problem List Reviewed?: Yes Hospital Course: Yovany Romero is a 57-year-old male with history of Type 1 diabetes, HTN, CAD, GERD, quadruple bypass, COPD, and Asthma who presented the ER via POV with concerns of nausea, vomiting, diarrhea x3 days (10/31/22). He does have a history of type 1 diabetes and had been hyperglycemic over the past 3 days prior to coming to ED. States that he had not been taking his long-acting insulin but will still intermittently took his short acting insulin. He takes Tresiba 160 mg in the morning and he uses a sliding scale NovoLog through the day. Reported chills and body aches, unknown fevers. He was admitted to the ICU room 5 (11/01/22) Had been able to keep down food and fluids. 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 He denied vomiting/diarrhea his first night and mentioned that he "couldn't remember if he had" questioning any constant lucidity of thinking. He was still nauseas and was advised that a transfer was unlikely and that he would need to stay on Insulin drip until stable, where he was taken off of IV insulin and given injections. The next day 11/02/22 he denied nausea, vomiting, and diarrhea, and a plan was made for him to get more insulin from his pharmacy after being DCd which he agreed to. BERNARDO RECINOS Labs (last 24 hrs) Laboratory Tests 10/31/22 21:59: Influenza Type A (RT-PCR) Not Detected, Influenza Type B (RT-PCR) Not Detected, SARS-CoV-2 RNA (RT-PCR) Not Detected 10/31/22 22:02: Glucometer 425*H 10/31/22 22:05: White Blood Count 14.4H, Red Blood Count 6.35H, Hemoglobin 17.7, Hematocrit 53, Mean Corpuscular Volume 83, Mean Corpuscular Hemoglobin 28, Mean Corpuscular Hemoglobin Concent 34, Red Cell Distribution Width 13.9, Platelet Count 259, Mean Platelet Volume 10.6, Immature Granulocyte % (Auto) 1, Neutrophils (%) (Auto) 76H, Lymphocytes (%) (Auto) 16, Monocytes (%) (Auto) 7, Eosinophils (%) (Auto) 0, Basophils (%) (Auto) 1, Neutrophils # (Auto) 11.0H, Lymphocytes # (Auto) 2.3, Monocytes # (Auto) 1.0, Eosinophils # (Auto) 0.1, Basophils # (Auto) 0.1, Immature Granulocyte # (Auto) 0.1, Neutrophils % (Manual) 72, Lymphocytes % (Manual) 17, Monocytes % (Manual) 10, Eosinophils % (Manual) 1, Spherocytes SLIGHT, [place] Cells SLIGHT, Sodium Level 136, Potassium Level 4.6, Chloride Level 95L, Carbon Dioxide Level 15L, Anion Gap 26H, Blood Urea Nitrogen 22H, Creatinine 1.89H, Estimat Glomerular Filtration Rate 41, BUN/Creatinine Ratio 12, Glucose Level 412*H, Calcium Level 10.8H, Corrected Calcium , Total Bilirubin 0.5, Aspartate Amino Transf (AST/SGOT) 13, Alanine Aminotransferase (ALT/SGPT) 16, Alkaline Phosphatase 109, Total Protein 8.2, Albumin 4.7H, Beta- Hydroxybutyrate (Chem panel) 9.50H 10/31/22 23:08: Venous Blood pH 7.25L, Venous Blood Partial Pressure CO2 42, Venous Blood HCO3 18L 11/01/22 00:23: Glucometer 295H 11/01/22 00:52: White Blood Count 15.8H, Red Blood Count 6.23H, Hemoglobin 17.3, Hematocrit 52, Mean Corpuscular Volume 83, Mean Corpuscular Hemoglobin 28, Mean Corpuscular Hemoglobin Concent 33, Red Cell Distribution Width 13.7, Platelet Count 222, Mean Platelet Volume 10.3, Immature Granulocyte % (Auto) 1, Neutrophils (%) (Auto) 78H, Lymphocytes (%) (Auto) 13, Monocytes (%) (Auto) 6, Eosinophils (%) (Auto) 2, Basophils (%) (Auto) 1, Neutrophils # (Auto) 12.4H, Lymphocytes # (Auto) 2.0, Monocytes # (Auto) 1.0, Eosinophils # (Auto) 0.3, Basophils # (Auto) 0.1, Immature Granulocyte # (Auto) 0.1, Sodium Level 139, Potassium Level 3.9, Chloride Level 102, Carbon Dioxide Level 12L, Anion Gap 25H, Blood Urea Nitrogen 20H, Creatinine 1.50H, Estimat Glomerular Filtration Rate 54, BUN/Creatinine Ratio 13, Glucose Level 278H, Mean Blood Glucose 255H, Hemoglobin A1c 10.5H, Calcium Level 9.8, Procalcitonin 0.03 11/01/22 02:06: Glucometer 256H 11/01/22 02:57: Glucometer 269H 11/01/22 02:58: White Blood Count 13.7H, Red Blood Count 5.78H, Hemoglobin 15.9, Hematocrit 48, Mean Corpuscular Volume 83, Mean Corpuscular Hemoglobin 28, Mean Corpuscular Hemoglobin Concent 33, Red Cell Distribution Width 13.7, Platelet Count 207, Mean Platelet Volume 10.4, Immature Granulocyte % (Auto) 1, Neutrophils (%) (Auto) 79H, Lymphocytes (%) (Auto) 14, Monocytes (%) (Auto) 5, Eosinophils (%) (Auto) 1, Basophils (%) (Auto) 0, Neutrophils # (Auto) 10.8H, Lymphocytes # (Auto) 2.0, Monocytes # (Auto) 0.7, Eosinophils # (Auto) 0.2, Basophils # (Auto) 0.1, Immature Granulocyte # (Auto) 0.1, Sodium Level 138, Potassium Level 4.2, Chloride Level 103, Carbon Dioxide Level 11L, Anion Gap 24H, Blood Urea Nitrogen 19H, Creatinine 1.40H, Estimat Glomerular Filtration Rate 59, BUN/Creatinine Ratio 14, Glucose Level 281H, Calcium Level 9.1, Corrected Calcium 9.1, Phosphorus Level 2.8, Magnesium Level 1.9, Total Bilirubin 0.3, Aspartate Amino Transf (AST/SGOT) 14, Alanine Aminotransferase (ALT/SGPT) 12, Alkaline Phosphatase 96, Total Protein 7.0, Albumin 4.0, Beta-Hydroxybutyrate (Chem panel) 9.18H 11/01/22 03:15: Urine Color YELLOW, Urine Clarity CLEAR, Urine pH 5.5, Urine Specific [place] >=1.030, Urine Protein NEGATIVE, Urine Glucose (UA) 2+H, Urine Ketones 3+H, Urine Nitrite NEGATIVE, Urine Bilirubin NEGATIVE, Urine Urobilinogen 0.2, Urine Leukocyte Esterase NEGATIVE, Urine RBC (Auto) 1+H, Urine RBC NONE, Urine WBC 2- 5, Urine Squamous Epithelial Cells 0-2, Urine Crystals NONE, Urine Bacteria TRACE, Urine Casts PRESENT, Urine Hyaline Casts 0-2H, Urine Mucus SMALLH, Urine Culture Indicated NO 11/01/22 03:55: Glucometer 254H 11/01/22 04:49: Sodium Level 137, Potassium Level 4.3, Chloride Level 104, Carbon Dioxide Level 14L, Anion Gap 19H, Blood Urea Nitrogen 17, Creatinine 1.29, Estimat Glomerular Filtration Rate 65, BUN/Creatinine Ratio 13, Glucose Level 237H, Calcium Level 9.2, Corrected Calcium 9.2, Phosphorus Level 2.4, Magnesium Level 1.6, Total Bilirubin 0.3, Aspartate Amino Transf (AST/SGOT) 12, Alanine Aminotransferase (ALT/SGPT) 13, Alkaline Phosphatase 93, Total Protein 6.9, Albumin 4.0, Beta- Hydroxybutyrate (Chem panel) 6.32H 11/01/22 04:52: Glucometer 236H 11/01/22 06:04: Glucometer 237H 11/01/22 06:44: Glucometer 269H 11/01/22 08:00: Glucometer 243H 11/01/22 09:05: Sodium Level 135, Potassium Level 3.8, Chloride Level 105, Carbon Dioxide Level 17L, Anion Gap 13, Blood Urea Nitrogen 13, Creatinine 1.18, Estimat Glomerular Filtration Rate 72, BUN/Creatinine Ratio 11, Glucose Level 223H, Calcium Level 8.7 11/01/22 09:26: Glucometer 210H 11/01/22 10:29: Glucometer 219H 11/01/22 11:31: Glucometer 203H 11/01/22 12:44: Glucometer 174H 11/01/22 13:29: Glucometer 159H 11/01/22 14:30: Glucometer 139H 11/01/22 15:25: Glucometer 142H 11/01/22 16:18: Glucometer 109 11/01/22 17:20: Sodium Level 137, Potassium Level 4.0, Chloride Level 109H, Carbon Dioxide Level 19L, Anion Gap 9, Blood Urea Nitrogen 8, Creatinine 1.01, Estimat Glomerular Filtration Rate 87, BUN/Creatinine Ratio 8, Glucose Level 108H, Calcium Level 8.7 11/01/22 17:51: Glucometer 116H 11/01/22 19:37: Glucometer 131H 11/01/22 20:40: Glucometer 103 11/02/22 00:07: Glucometer 150H 11/02/22 05:15: White Blood Count 9.0, Red Blood Count 5.33, Hemoglobin 14.8, Hematocrit 44, Mean Corpuscular Volume 83, Mean Corpuscular Hemoglobin 28, Mean Corpuscular Hemoglobin Concent 33, Red Cell Distribution Width 13.8, Platelet Count 161, Mean Platelet Volume 10.2, Immature Granulocyte % (Auto) 0, Neutrophils (%) (Auto) 57, Lymphocytes (%) (Auto) 31, Monocytes (%) (Auto) 9, Eosinophils (%) (Auto) 2, Basophils (%) (Auto) 1, Neutrophils # (Auto) 5.1, Lymphocytes # (Auto) 2.8, Monocytes # (Auto) 0.8, Eosinophils # (Auto) 0.1, Basophils # (Auto) 0.1, Immature Granulocyte # (Auto) 0.0, Sodium Level 139, Potassium Level 3.9, Chloride Level 110H, Carbon Dioxide Level 19L, Anion Gap 10, Blood Urea Nitrogen 7, Creatinine 0.88, Estimat Glomerular Filtration Rate 100, BUN/Creatinine Ratio 8, Glucose Level 190H, Calcium Level 8.7, Corrected Calcium 9.3, Phosphorus Level 2.1L, Magnesium Level 1.6, Total Bilirubin 0.4, Aspartate Amino Transf (AST/SGOT) 11, Alanine Aminotransferase (ALT/SGPT) 11, Alkaline Phosphatase 78, Total Protein 5.6L, Albumin 3.3, Beta-Hydroxybutyrate (Chem panel) 2.06H 11/02/22 05:52: Glucometer 194H Microbiology 11/01/22 MRSA Screen - Final, Complete MRSA not isolated Pending Labs Microbiology Date/Time Source Procedure Growth Status 11/01/22 00:20 Nasal MRSA Screen - Final MRSA not isolated Complete Laboratory Tests 10/31/22 21:59: Influenza Type A (RT-PCR) Not Detected, Influenza Type B (RT-PCR) Not Detected, SARS-CoV-2 RNA (RT-PCR) Not Detected 10/31/22 22:02: Glucometer 425 10/31/22 22:05: White Blood Count 14.4, Red Blood Count 6.35, Hemoglobin 17.7, Hematocrit 53, Mean Corpuscular Volume 83, Mean Corpuscular Hemoglobin 28, Mean Corpuscular Hemoglobin Concent 34, Red Cell Distribution Width 13.9, Platelet Count 259, Mean Platelet Volume 10.6, Immature Granulocyte % (Auto) 1, Neutrophils (%) (Auto) 76, Lymphocytes (%) (Auto) 16, Monocytes (%) (Auto) 7, Eosinophils (%) (Auto) 0, Basophils (%) (Auto) 1, Neutrophils # (Auto) 11.0, Lymphocytes # (Auto) 2.3, Monocytes # (Auto) 1.0, Eosinophils # (Auto) 0.1, Basophils # (Auto) 0.1, Immature Granulocyte # (Auto) 0.1, Neutrophils % (Manual) 72, Lymphocytes % (Manual) 17, Monocytes % (Manual) 10, Eosinophils % (Manual) 1, Spherocytes SLIGHT, [place] Cells SLIGHT, Sodium Level 136, Potassium Level 4.6, Chloride Level 95, Carbon Dioxide Level 15, Anion Gap 26, Blood Urea Nitrogen 22, Creatinine 1.89, Estimat Glomerular Filtration Rate 41, BUN/Creatinine Ratio 12, Glucose Level 412, Calcium Level 10.8, Corrected Calcium , Total Bilirubin 0.5, Aspartate Amino Transf (AST/SGOT) 13, Alanine Aminotransferase (ALT/SGPT) 16, Alkaline Phosphatase 109, Total Protein 8.2, Albumin 4.7, Beta-Hydroxybutyrate (Chem panel) 9.50 10/31/22 23:08: Venous Blood pH 7.25, Venous Blood Partial Pressure CO2 42, Venous Blood HCO3 18 11/01/22 00:23: Glucometer 295 11/01/22 00:52: White Blood Count 15.8, Red Blood Count 6.23, Hemoglobin 17.3, Hematocrit 52, Mean Corpuscular Volume 83, Mean Corpuscular Hemoglobin 28, Mean Corpuscular Hemoglobin Concent 33, Red Cell Distribution Width 13.7, Platelet Count 222, Mean Platelet Volume 10.3, Immature Granulocyte % (Auto) 1, Neutrophils (%) (Auto) 78, Lymphocytes (%) (Auto) 13, Monocytes (%) (Auto) 6, Eosinophils (%) (Auto) 2, Basophils (%) (Auto) 1, Neutrophils # (Auto) 12.4, Lymphocytes # (Auto) 2.0, Monocytes # (Auto) 1.0, Eosinophils # (Auto) 0.3, Basophils # (Auto) 0.1, Immature Granulocyte # (Auto) 0.1, Sodium Level 139, Potassium Level 3.9, Chloride Level 102, Carbon Dioxide Level 12, Anion Gap 25, Blood Urea Nitrogen 20, Creatinine 1.50, Estimat Glomerular Filtration Rate 54, BUN/Creatinine Ratio 13, Glucose Level 278, Mean Blood Glucose 255, Hemoglobin A1c 10.5, Calcium Level 9.8, Procalcitonin 0.03 11/01/22 02:06: Glucometer 256 11/01/22 02:57: Glucometer 269 11/01/22 02:58: White Blood Count 13.7, Red Blood Count 5.78, Hemoglobin 15.9, Hematocrit 48, Mean Corpuscular Volume 83, Mean Corpuscular Hemoglobin 28, Mean Corpuscular Hemoglobin Concent 33, Red Cell Distribution Width 13.7, Platelet Count 207, Mean Platelet Volume 10.4, Immature Granulocyte % (Auto) 1, Neutrophils (%) (Auto) 79, Lymphocytes (%) (Auto) 14, Monocytes (%) (Auto) 5, Eosinophils (%) (Auto) 1, Basophils (%) (Auto) 0, Neutrophils # (Auto) 10.8, Lymphocytes # (Auto) 2.0, Monocytes # (Auto) 0.7, Eosinophils # (Auto) 0.2, Basophils # (Auto) 0.1, Immature Granulocyte # (Auto) 0.1, Sodium Level 138, Potassium Level 4.2, Chloride Level 103, Carbon Dioxide Level 11, Anion Gap 24, Blood Urea Nitrogen 19, Creatinine 1.40, Estimat Glomerular Filtration Rate 59, BUN/Creatinine Ratio 14, Glucose Level 281, Calcium Level 9.1, Corrected Calcium 9.1, Phosphorus Level 2.8, Magnesium Level 1.9, Total Bilirubin 0.3, Aspartate Amino Transf (AST/SGOT) 14, Alanine Aminotransferase (ALT/SGPT) 12, Alkaline Phosphatase 96, Total Protein 7.0, Albumin 4.0, Beta-Hydroxybutyrate (Chem panel) 9.18 11/01/22 03:15: Urine Color YELLOW, Urine Clarity CLEAR, Urine pH 5.5, Urine Specific [place] >=1.030, Urine Protein NEGATIVE, Urine Glucose (UA) 2+, Urine Ketones 3+, Urine Nitrite NEGATIVE, Urine Bilirubin NEGATIVE, Urine Urobilinogen 0.2, Urine Leukocyte Esterase NEGATIVE, Urine RBC (Auto) 1+, Urine RBC NONE, Urine WBC 2-5, Urine Squamous Epithelial Cells 0-2, Urine Crystals NONE, Urine Bacteria TRACE, Urine Casts PRESENT, Urine Hyaline Casts 0-2, Urine Mucus SMALL, Urine Culture Indicated NO 11/01/22 03:55: Glucometer 254 11/01/22 04:49: Sodium Level 137, Potassium Level 4.3, Chloride Level 104, Carbon Dioxide Level 14, Anion Gap 19, Blood Urea Nitrogen 17, Creatinine 1.29, Estimat Glomerular Filtration Rate 65, BUN/Creatinine Ratio 13, Glucose Level 237, Calcium Level 9.2, Corrected Calcium 9.2, Phosphorus Level 2.4, Magnesium Level 1.6, Total Bilirubin 0.3, Aspartate Amino Transf (AST/SGOT) 12, Alanine Aminotransferase (ALT/SGPT) 13, Alkaline Phosphatase 93, Total Protein 6.9, Albumin 4.0, Beta-Hydroxybutyrate (Chem panel) 6.32 11/01/22 04:52: Glucometer 236 11/01/22 06:04: Glucometer 237 11/01/22 06:44: Glucometer 269 11/01/22 08:00: Glucometer 243 11/01/22 09:05: Sodium Level 135, Potassium Level 3.8, Chloride Level 105, Carbon Dioxide Level 17, Anion Gap 13, Blood Urea Nitrogen 13, Creatinine 1.18, Estimat Glomerular Filtration Rate 72, BUN/Creatinine Ratio 11, Glucose Level 223, Calcium Level 8 .7 11/01/22 09:26: Glucometer 210 11/01/22 10:29: Glucometer 219 11/01/22 11:31: Glucometer 203 11/01/22 12:44: Glucometer 174 11/01/22 13:29: Glucometer 159 11/01/22 14:30: Glucometer 139 11/01/22 15:25: Glucometer 142 11/01/22 16:18: Glucometer 109 11/01/22 17:20: Sodium Level 137, Potassium Level 4.0, Chloride Level 109, Carbon Dioxide Level 19, Anion Gap 9, Blood Urea Nitrogen 8, Creatinine 1.01, Estimat Glomerular Filtration Rate 87, BUN/Creatinine Ratio 8, Glucose Level 108, Calcium Level 8.7 11/01/22 17:51: Glucometer 116 11/01/22 19:37: Glucometer 131 11/01/22 20:40: Glucometer 103 11/02/22 00:07: Glucometer 150 11/02/22 05:15: White Blood Count 9.0, Red Blood Count 5.33, Hemoglobin 14.8, Hematocrit 44, Mean Corpuscular Volume 83, Mean Corpuscular Hemoglobin 28, Mean Corpuscular Hemoglobin Concent 33, Red Cell Distribution Width 13.8, Platelet Count 161, Mean Platelet Volume 10.2, Immature Granulocyte % (Auto) 0, Neutrophils (%) (Auto) 57, Lymphocytes (%) (Auto) 31, Monocytes (%) (Auto) 9, Eosinophils (%) (Auto) 2, Basophils (%) (Auto) 1, Neutrophils # (Auto) 5.1, Lymphocytes # (Auto) 2.8, Monocytes # (Auto) 0.8, Eosinophils # (Auto) 0.1, Basophils # (Auto) 0.1, Immature Granulocyte # (Auto) 0.0, Sodium Level 139, Potassium Level 3.9, Chloride Level 110, Carbon Dioxide Level 19, Anion Gap 10, Blood Urea Nitrogen 7, Creatinine 0.88, Estimat Glomerular Filtration Rate 100, BUN/Creatinine Ratio 8, Glucose Level 190, Calcium Level 8.7, Corrected Calcium 9.3, Phosphorus Level 2.1, Magnesium Level 1.6, Total Bilirubin 0.4, Aspartate Amino Transf (AST/SGOT) 11, Alanine Aminotransferase (ALT/SGPT) 11, Alkaline Phosphatase 78, Total Protein 5.6, Albumin 3.3, Beta-Hydroxybutyrate (Chem panel) 2.06 11/02/22 05:52: Glucometer 194 Discharge Home Medications: Active Scripts Active Flomax (Tamsulosin HCl) 0.4 Mg Cap 0.4 Mg PO BID 365 Days Reported Novolog Flexpen (Insulin Aspart) 100 Unit/Ml (3 Ml) Solution Units SC AC Oxcarbazepine 600 Mg Tablet 900 Mg PO BID TAKES 1 & (600MG) TABS Isosorbide Mononitrate ER (Isosorbide Mononitrate) 30 Mg Tab.er.24h 30 Mg PO DAILY Fenofibrate (Fenofibrate Nanocrystallized) 145 Mg Tablet 145 Mg PO DAILY Tresiba Flextouch U-200 (Insulin Degludec) 200 Unit/Ml (3 Ml) Insuln.pen 160 Units SC DAILY Dulera 200 Mcg/5 Mcg Inhaler (Mometasone/Formoterol) 200 Mcg-5 Mcg/Actuation Hfa.aer.ad 2 Puff INH BID Amitriptyline HCl 50 Mg Tablet 50 Mg PO HS Aspirin EC (Aspirin) 81 Mg Tablet.dr 81 Mg PO MO,WE,FR Fish Oil 1,000 mg Softgel (Supai-3/Dha/Epa/Fish Oil) 250 Mg-500 Mg-1,000 Mg Capsule 2 Each PO BID Clopidogrel (Clopidogrel Bisulfate) 75 Mg Tablet 75 Mg PO DAILY Pregabalin 200 Mg Capsule 200 Mg PO BID Oxycodone HCl 10 Mg Tablet 10 Mg PO Q4H PRN Duloxetine HCl 30 Mg Capsule.dr 30 Mg PO BID Ventolin Hfa (Albuterol Sulfate) 90 Mcg Hfa.aer.ad 2 Puff INH Q6H PRN Repatha Syringe (Evolocumab) 140 Mg/Ml Syringe 1 Ea IJ EVERY 2 WEEKS Spiriva (Tiotropium [place]) 18 Mcg Aerp 1 Puff INH DAILY Carvedilol 25 Mg Tablet 12.5 Mg PO BID TAKES OF A 25MG TAB Dilt-Xr (Diltiazem HCl) 240 Mg Cap.er.deg 240 Mg PO DAILY Dicyclomine HCl 20 Mg Tablet 20 Mg PO DAILY Instructions to patient/family Please see electronic discharge instructions given to patient. Diagnosis/Problems Diagnosis/Problems (1) DKA (diabetic ketoacidosis) Status: Acute NNEKA SALAZAR DO Nov 02, 2022 09:49
[2022-11-02 10:50] VITALS: BP 96/63
--- NOTE | 2022-11-02 11:57 | Progress Note ---
BERNARDO RECINOS 11/02/22 1157: Progress Note Hospital Course: Yovany Romero is a 57-year-old male with history of Type 1 diabetes, HTN, CAD, GERD, quadruple bypass, COPD, and Asthma who presented the ER via POV with concerns of nausea, vomiting, diarrhea x3 days (10/31/22). He does have a history of type 1 diabetes and had been hyperglycemic over the past 3 days prior to coming to ED. States that he had not been taking his long-acting insulin but will still intermittently took his short acting insulin. He takes Tresiba 160 mg in the morning and he uses a sliding scale NovoLog through the day. Reported chills and body aches, unknown fevers. He was admitted to the ICU room 5 (11/01/22) Had been able to keep down food and fluids. 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 He denied vomiting/diarrhea his first night and mentioned that he "couldn't remember if he had" questioning any constant lucidity of thinking. He was still nauseas and was advised that a transfer was unlikely and that he would need to stay on Insulin drip until stable, where he was taken off of IV insulin and given injections. The next day 11/02/22 he denied nausea, vomiting, and diarrhea, and a plan was made for him to get more insulin from his pharmacy after being DCd which he agreed to. NNEKA SALAZAR DO 11/03/22 0440: Supervisory-Addendum Brief Verification & Attestation Participated in pt care: history, MDM, physical Personally performed: exam, history, MDM, supervision of care Care discussed with: Medical Student Procedures: n/a Results interpretation: Verified all documentation Verification and Attestation of Medical Student E/M Service A medical student performed and documented this service in my presence. I revie wed and verified all information documented by the medical student and made modifications to such information, when appropriate. I personally performed the physical exam and medical decision making. Nneka Salazar Nov 03, 2022,04:40 BERNARDO RECINOS Nov 02, 2022 11:57 NNEKA SALAZAR DO Nov 03, 2022 04:40
== END 2022-11-02 11:05 | disposition home or self-care (01) | DRG 639 ==
LOC: ER 21:52 → ICU 23:37
PROVIDERS: ADMIT Internal Medicine; ATTEND Internal Medicine
DX: E10.10 Type 1 diabetes mellitus with ketoacidosis without coma (principal); A08.4 Viral intestinal infection, unspecified; I10 Essential (primary) hypertension; I25.10 Atherosclerotic heart disease of native coronary artery without angina pectoris; K21.9 Gastro-esophageal reflux disease without esophagitis; J44.9 Chronic obstructive pulmonary disease, unspecified; R06.82 Tachypnea, not elsewhere classified; R06.89 Other abnormalities of breathing; Z20.822 Contact with and (suspected) exposure to COVID-19; Z79.4 Long term (current) use of insulin; Z79.85 Long-term (current) use of injectable non-insulin antidiabetic drugs; Z79.82 Long term (current) use of aspirin; Z95.1 Presence of aortocoronary bypass graft; Z95.5 Presence of coronary angioplasty implant and graft; Z85.51 Personal history of malignant neoplasm of bladder; Z85.46 Personal history of malignant neoplasm of prostate
CPT/HCPCS: 36415; 80048; 80053; 81000; 82010; 82805; 82947; 83036; 83735; 84100; 84145; 85007; 85025; 85027; 87081; 87636; 94640